=== PATIENT | male | born 1980 | race Caucasian/White ===

== ENCOUNTER → 2016-11-28 | Outpatient (CLI) | payer OTHER | LOC: MW.CHUR 16:07 | PROVIDERS: ATTEND Urology | DX: E29.1 Testicular hypofunction (principal) | CPT/HCPCS: 36415; 84402; 84403 ==

== ENCOUNTER 2022-02-11 12:06 | Emergency (ER) | payer BC ==
[2022-02-11 13:00] VITALS: PULSE 83
[2022-02-11] MEDS ORDERED: Bacitracin Oint 1 GM U/D Packet TOP ONE (13:47)
[2022-02-11] MEDS ORDERED: Diphtheria,Pertussis(Acell),Tetanus Vaccine 0.5 ML Syringe IM ONE (13:47)
[2022-02-11 14:46] VITALS: BP 115/82
== END 2022-02-11 14:47 | disposition home or self-care (01) ==
LOC: MW.ED 12:06
DX: T22.211A Burn of second degree of right forearm, initial encounter (principal); I10 Essential (primary) hypertension; Z23 Encounter for immunization; X19.XXXA Contact with other heat and hot substances, initial encounter; Y93.G3 Activity, cooking and baking
CPT/HCPCS: 90471; 90715; 99283-25

== ENCOUNTER 2023-04-04 08:42 | Emergency (ER) | payer BC ==
[2023-04-04 08:55] VITALS: BP 175/74; PULSE 80
== END 2023-04-04 10:39 | disposition left against medical advice (07) ==
LOC: MW.ED 08:42
DX: M25.562 Pain in left knee (principal); I10 Essential (primary) hypertension; X50.1XXA Overexertion from prolonged static or awkward postures, initial encounter
CPT/HCPCS: 99281; 99283

== ENCOUNTER 2023-06-19 11:53 | Day surgery (SDC) | payer BC ==
[~2023-06-19 11:53] MED LIST: Lactated Ringers 1,000 ML IV SCH
[2023-06-19] MEDS ORDERED: Metoclopramide 10 MG/2 ML SDV IM ONE (11:54)
[2023-06-19] MEDS ORDERED: Dexamethasone 4 MG/ML 5 ML MDV IM ONE (11:54)
[2023-06-19] MEDS ORDERED: Magnesium Sulfate (4.06 MEQ/ML) 5 GM/10 ML SDV ONE (12:22)
[2023-06-19] MEDS ORDERED: ceFAZolin 2 GM Vial ONE (12:22)
[2023-06-19] MEDS ORDERED: Morphine 10 MG/ML SDV ONE (12:22)
[2023-06-19] MEDS ORDERED: Sugammadex Sodium 200 MG/2 ML VIAL ONE ×2 (12:22→13:39)
[2023-06-19] MEDS ORDERED: Scopolamine 1.5 MG Transdermal Patch ONE (12:22)
[2023-06-19] MEDS ORDERED: Dexmedetomidine 200 MCG/2 ML SDV ONE (12:22)
[2023-06-19] MEDS ORDERED: fentaNYL 100 MCG/2 ML SDV ONE (12:22)
[2023-06-19] MEDS ORDERED: Ondansetron 4 MG/2 ML SDV ONE ×2 (12:22)
[2023-06-19] MEDS ORDERED: Rocuronium Bromide 50 MG/5 ML Syringe ONE ×2 (12:22)
[2023-06-19] MEDS ORDERED: Ketorolac 30 MG/ML SDV ONE (12:22)
[2023-06-19] MEDS ORDERED: Lidocaine 2% 5 ML SDV ONE ×2 (12:22)
[2023-06-19] MEDS ORDERED: fentaNYL 50 MCG/ML SDV IVPUSH PRN (12:24)
[2023-06-19] MEDS ORDERED: Bupivacaine 0.5%/EPINEPHrine 1:200,000 30 ML SDV ONE (12:24)
[2023-06-19] MEDS ORDERED: Albuterol 0.083% 2.5 MG/3 ML Neb Soln NEB PRN (12:24)
[2023-06-19] MEDS ORDERED: Metoclopramide 10 MG/2 ML SDV IVPUSH PRN (12:24)
[2023-06-19] MEDS ORDERED: Morphine 2 MG/ML SYRINGE IVPUSH PRN (12:24)
[2023-06-19] MEDS ORDERED: Ondansetron 4 MG/2 ML SDV IVPUSH PRN (12:24)
[2023-06-19] MEDS ORDERED: HYDROmorphone 1 MG/ML Syringe IVPUSH PRN (12:24)
[2023-06-19] MEDS ORDERED: droPERidol 5 MG/2 ML SDV IVPUSH PRN (12:24)
[2023-06-19] MEDS ORDERED: Naloxone 0.4 MG/ML SDV IVPUSH PRN (12:24)
[2023-06-19] MEDS ORDERED: propofoL 100 ML ONE (12:25)
[2023-06-19] MEDS ORDERED: ceFAZolin 1 GM Vial ONE (13:29)
[2023-06-19] MEDS ORDERED: Phenylephrine HCl 0.5 MG/5 ML AMP ONE (13:44)
[2023-06-19 16:45] VITALS: BP 140/76; PULSE 76
== END 2023-06-19 15:30 | disposition home or self-care (01) ==
LOC: MW.SDS 11:53
PROVIDERS: ATTEND Orthopaedic Surgery
DX: S83.242A Other tear of medial meniscus, current injury, left knee, initial encounter (principal); M24.10 Other articular cartilage disorders, unspecified site; K21.9 Gastro-esophageal reflux disease without esophagitis; I10 Essential (primary) hypertension; G47.33 Obstructive sleep apnea (adult) (pediatric); E66.01 Morbid (severe) obesity due to excess calories; Z79.899 Other long term (current) drug therapy; Z87.891 Personal history of nicotine dependence; Z68.42 Body mass index [BMI] 45.0-49.9, adult
CPT/HCPCS: 29881; A9270; J0131; J0690; J1100; J1170; J1885; J2270; J2371; J2704; J2765; J3010; J3475; J3490; J7120; J2405